=== PATIENT | male | born 1985 | race Caucasian/White ===

== ENCOUNTER 2021-06-28 14:21 | Outpatient (CLI) | payer OTHER, SELFPAY ==
[2021-06-28 14:50] VITALS: BP 130/87; PULSE 82; RESP 16; TEMP 36.8; O2SAT 97; BMI 32.3
[2021-06-28] MEDS: 0.9% Saline Lock 10 ML Syringe IV (14:50)
[2021-06-28 15:25] VITALS: BP 133/90; PULSE 103; RESP 16; TEMP 37.3; O2SAT 100
[2021-06-28 16:25] VITALS: BP 136/84; PULSE 84; RESP 16; TEMP 37.3; O2SAT 100
== END 2021-06-28 23:59 | disposition home or self-care (01) ==
LOC: MS3OUT 14:21 → MS3 14:22
PROVIDERS: Referring Provider Nurse Practitioner Adult Health; Visit Provider Nurse Practitioner Adult Health
DX: U07.1 COVID-19 (principal)
CPT/HCPCS: J7050; M0247; A4216; Q0247